=== PATIENT | male | born 1995 ===

== ENCOUNTER 2021-02-28 18:56 | Emergency (ER) | payer OTHER, SELFPAY ==
--- NOTE | ~2021-02-28 | XR_ITS ---
EXAMINATION: XR CHEST CLINICAL INFORMATION: Cough COMPARISON: 07/24/2016 TECHNIQUE: 2 views of the chest were obtained. FINDINGS: The lungs are well expanded. There is no focal consolidation, edema, or effusion. No pneumothorax. The cardiomediastinal silhouette is within normal limits. No acute osseous abnormality. XR/XR chest 2V IMPRESSION: Clear lungs.
[2021-02-28 19:01] VITALS: BP 143/79; PULSE 79; RESP 16; TEMP 37.1; O2SAT 99; BMI 24.3
[2021-02-28 19:43] LABS: COVID-19 Test Negative (Negative)
--- NOTE | 2021-02-28 21:23 | ED.URI ---
HPI - URI/Sore Throat General Chief Complaint: Upper Respiratory Symptoms Stated Complaint: Cold symptoms Time Seen by Provider: 02/28/21 21:23 Source: patient Mode of arrival: ambulatory Limitations: no limitations History of Present Illness HPI Narrative: States past 3 days of runny nose and congestion today with mild cough. No fever. No recent travel or sick contacts. Is vaccinated for COVID-19. MD elicited complaint: rhinorrhea and nasal congestion Onset (ago): day(s) Consistency: constant Severity: mild Exacerbating factors: nothing Relieving factors: nothing Associated symptoms: denies other symptoms Treatments prior to arrival: none Related Data Allergies Allergy/AdvReac Type Severity Reaction Status Date / Time azithromycin [From ZITHROMAX] Allergy Unknown RASH/SWELLI Unverified 05/27/20 16:38 NG Review of Systems Review of Systems: Constitutional: No Weight loss, No Fever, No Chills, No Night Sweats, No Fatigue, No Malaise ENT/Mouth: No Hearing loss, No Ear Pain, + Nasal Congestion, No Sinus Pain, No Hoarseness, No sore throat, + Rhinorrhea, No Swallowing Difficulty Eyes: No Eye Pain, No Swelling, No Redness, No Foreign Body, No Discharge, No Vision Changes Cardiovascular: No Chest Pain, No SOB, No Dyspnea on Exertion, No Orthopnea, No Edema, No Palpitations Respiratory: + Cough, No Sputum, No Wheezing, No Smoke Exposure, No Dyspnea Gastrointestinal: No Nausea, No Vomiting, No Diarrhea, No Constipation, No abdominal Pain, No Hematochezia, No Melena Genitourinary: no irregular bleeding, No Dysuria, No Urinary Frequency, No Hematuria, No Urinary Incontinence, No Urgency, No Flank Pain, No Urinary Flow Changes, No Hesitancy Musculoskeletal: No joint pain, No Myalgias, No Joint Swelling Skin: No Skin Lesions, No rash Neuro: No Weakness, No Numbness, No Paresthesias, No Loss of Consciousness, No Dizziness, No Headache Psych: No Social Issues Heme/Lymph: No Bruising, No Bleeding,No Lymphadenopathy Endocrine: No Polyuria, No Polydipsia, No Temperature Intolerance Yes all other systems are reviewed and are negative PMFSH Past Medical History Medical History (Updated 02/28/21 @ 21:25 by Daniel Jerez NP) Asthma Social History Social History Advance Directives: No Advance Directives Information Provided: Yes Physical Exam Vital Signs: Vital Signs: Last Vital Signs Temp 98.7 F 02/28/21 19:01 Pulse 79 02/28/21 19:01 Resp 16 02/28/21 19:01 BP 143/79 H 02/28/21 19:01 Pulse Ox 99 02/28/21 19:01 Body Mass Index 24.3 Reviewed Const: General: cooperative and healthy appearing; No acute distress or intoxicated appearing Nutritional Appearance: average body habitus Orientation/consciousness: patient oriented x3 HENMT: Head: Yes normal to inspection Ears: hearing grossly normal bilaterally Eyes: General: appearance normal, both eyes and all related structures Visual Smith: normal visual smith by confrontation Neck: Neck: Yes normal visual inspection, No positive Brudzinski's sign, No positive Kernig's sign and No tender Thyroid: Thyroid normal Chest: Chest palpation & inspection: normal inspection of the chest Resp: Effort & Inspection: normal respiratory effort Auscultation: clear to auscultation bilaterally Cardio: Jugular venous distension: no JVD Rhythm: regular rhythm Heart sounds: S1 normal heart sound present and S2 normal heart sound present GI: Inspection: Yes normal to inspection Palpation (GI): Soft to palpation Percussion: Yes normal to percussion Auscultation: normal bowel sounds : General: Yes no CVA tenderness Back/Spine/Pelvis: Back: no CVA tenderness Skin: General skin exam: no rashes or lesions noted Neuro: General: patient oriented x3 Extrem: General: Yes normal to inspection Course Course Course Narrative: Mild rhinorrhea otherwise exam unremarkable. COVID-19 negative protocol chest x-ray done prior to my evaluation in triage this was negative as well. Will practice social isolation/distancing. Work note provided. Verbalized understanding. Stable for discharge. MDM - URI/Sore Throat Lab Data Labs: Lab Results 02/28/21 Range/Units 19:22 COVID-19 (GEOVANNI) Negative (Negative) COVID-19 Clin Com See Note Imaging Data Chest x-ray: Radiologist's impression: Edi Chiu 25 M 1995 [facility], [place] [place], [place] [id number] ReportSigned Patient: AramEdi AMR#: [id number]: 1995Acct:[id number]/Sex: 25 / MADM Date: 02/28/21Loc: HO.EDAttending Dr: Ordering Physician: Generic ED Physician Date of Service: 02/28/21 Procedure(s): XR chest 2V Accession Number(s): [id number] cc: Generic ED Physician~ EXAMINATION: XR CHEST CLINICAL INFORMATION: Cough COMPARISON: 07/24/2016 TECHNIQUE: 2 views of the chest were obtained. FINDINGS: The lungs are well expanded. There is no focal consolidation, edema, or effusion. No pneumothorax. The cardiomediastinal silhouette is within normal limits. No acute osseous abnormality. XR/XR chest 2V IMPRESSION: Clear lungs. Dictated By:Santiago Pedraza MDSigned By:<Electronically signed by Santiago Pedraza MD in OV>02/28/212025 DD/ 02TD/TT: Warp Doffer: Discharge Plan Discharge Clinical Impression: Upper respiratory infection Qualifiers: URI type: unspecified viral URI Qualified Code(s): J06.9 - Acute upper respiratory infection, unspecified Patient Disposition: Home, Self-Care Instructions: Cold Symptoms (ED) Additional Instructions: Drink plenty of fluids Supportive care discussed Your COVID test was negative today Her chest x-ray did not show any evidence of infection Self-isolation social distancing at least until it you are 3 days symptom free Return if any concerns or worsening symptoms Otherwise follow-up as discussed Thank you Referrals: Physician,Unknown [Primary Care Provider] - 1 week (Phone visit) Stand Alone Forms: Work/School Release
--- NOTE | 2021-02-28 21:39 | PC.NURSE ---
VITALS UPON D/C. 98.7, 96%, 67P 123/65.
== END 2021-02-28 21:38 | disposition home or self-care (01) ==
PROVIDERS: Emergency Provider Emergency Medicine
DX: J06.9 Acute upper respiratory infection, unspecified (principal); Z20.822 Contact with and (suspected) exposure to COVID-19
CPT/HCPCS: 36415; 71046; 87635; 99283; 99284

== ENCOUNTER 2021-09-08 11:35 | Outpatient (REF) | payer OTHER, SELFPAY ==
[2021-09-08 13:26] LABS: IDNOW Serial# 16C4AD1C
[2021-09-08 13:27] LABS: COVID-19 Test Negative (Negative)
== END 2021-09-08 11:36 | disposition home or self-care (01) ==
LOC: HO.LAB 11:35
PROVIDERS: Visit Provider Internal Medicine
DX: Z20.822 Contact with and (suspected) exposure to COVID-19 (principal)
CPT/HCPCS: 36415; 87635; C9803

== ENCOUNTER 2022-08-08 05:53 | Emergency (ER) | payer MEDICAID, SELFPAY ==
--- NOTE | ~2022-08-08 | XR_ITS ---
EXAMINATION: XR CHEST CLINICAL INFORMATION: Cough. COMPARISON: None TECHNIQUE: Frontal view of the chest was obtained. FINDINGS: No significant abnormality is noted involving the heart, lungs, mediastinum, bony thorax or soft tissues. XR/XR chest 1V IMPRESSION: Unremarkable chest examination.
[2022-08-08 06:24] VITALS: BP 138/77; PULSE 100; RESP 20; TEMP 37.6; O2SAT 97; BMI 26.6
--- NOTE | 2022-08-08 07:32 | ED_ITS ---
HPI - URI/Sore Throat General Chief Complaint: Upper Respiratory Symptoms Stated Complaint: covid +, symptoms worsening Time Seen by Provider: 08/08/22 06:53 Source: patient Mode of arrival: ambulatory Limitations: no limitations History of Present Illness HPI Narrative: This is a 26 years old male presented to the emergency department complaining of cough congestion he was COVID positive 2 days ago denies any fever chills MD elicited complaint: cough Onset (ago): day(s) (3) Consistency: constant Severity: moderate Description of mucous: watery Able to tolerate fluids by mouth: Yes Exacerbating factors: nothing Related Data Allergies Allergy/AdvReac Type Severity Reaction Status Date / Time azithromycin [From ZITHROMAX] Allergy Unknown RASH/SWELLI Verified 08/08/22 06:2 6 NG Review of Systems Review of Systems: Yes all other systems are reviewed and are negative Constitutional: Constitutional: Reports no additional constitutional complaints ENT: Reports system reviewed and no additional complaints, except as documented Neurologic: Reports system reviewed and no additional complaints, except as documented PMFSH Past Medical History Medical History Asthma Social History Social History Advance Directives: No Advance Directives Information Provided: No Physical Exam Vital Signs: Vital Signs: Last Vital Signs Temp 100.1 F 08/08/22 07:40 Pulse 92 08/08/22 07:40 Resp 18 08/08/22 07:40 BP 125/64 08/08/22 07:40 Pulse Ox 98 08/08/22 07:40 O2 Del Method 08/08/22 07:40 BMI result Body Mass Index 26.6 Const: General: cooperative Nutritional Appearance: well nourished Limitations: no limitations HEENT: Head: Yes normal to inspection Ears: TM's normal bilaterally General nose exam: Normal external nose present Face and sinus: Yes normal facial exam Mouth: Normal oral and palatal mucosa present Teeth and gingiva: dentition normal Throat: Yes posterior oropharynx normal Neck: Neck: Yes normal visual inspection and Yes full ROM Chest: Chest palpation & inspection: normal inspection of the chest Resp: Effort & Inspection: normal respiratory effort Cardio: Jugular venous distension: no JVD Rate: regular rate Rhythm: regular rhythm Heart sounds: S1 normal heart sound present and S2 normal heart sound present GI: Inspection: Yes normal to inspection Palpation (GI): Soft to palpation, not firm, nontender and no guarding Percussion: Yes normal to percussion Auscultation: normal bowel sounds : General: Yes no CVA tenderness Back/Spine/Pelvis: Back: no CVA tenderness Thoracic/Lumbar Spine: thoracic and lumbar spine normal to inspection Course Course Course Narrative: feels better CXR negative will d/c home Medications Administered Discontinued Medications Generic Name Dose Route Start Last Admin Trade Name Freq PRN Reason Stop Dose Admin Ketorolac Tromethamine 60 mg 08/08/22 07:17 08/08/22 07:41 Ketorolac Tromethamine 60 Mg/2 Ml Vial IM 08/08/22 07:18 60 mg ONCE ONE Administration MDM - URI/Sore Throat Imaging Data Chest x-ray: Radiologist's impression: EXAMINATION: XR CHEST CLINICAL INFORMATION: Cough. COMPARISON: None TECHNIQUE: Frontal view of the chest was obtained. FINDINGS: No significant abnormality is noted involving the heart, lungs, mediastinum, bony thorax or soft tissues. XR/XR chest 1V IMPRESSION: Unremarkable chest examination. ? Discharge Plan Discharge Clinical Impression: COVID-19 Patient Disposition: Home, Self-Care Instructions: COVID-19 (Coronavirus Disease 2019) (ED) Additional Instructions: Drink a lot of fluid you could take ibuprofen 800 mg 3 times a day as needed return if you worse Interventions: ED Discharge Assessment Last Done: 08/08/22 09:11 Discharge Date/Time: 08/08/22 09:00
[2022-08-08 07:40] VITALS: BP 125/64; PULSE 92; RESP 18; TEMP 37.8; O2SAT 97; O2SAT 98
[2022-08-08] MEDS: Ketorolac Tromethamine 60 MG/2 ML VIAL IM (07:41)
--- NOTE | 2022-08-08 09:10 | PC.NURSE ---
WENT TO DISCHARGE PATIENT AND PATIENT WAS NOT IN ROOM. HOSPITAL GOWN ON THE BED.
== END 2022-08-08 09:00 | disposition home or self-care (01) ==
PROVIDERS: Emergency Provider Emergency Medicine
DX: U07.1 COVID-19 (principal); R05.9 Cough, unspecified
CPT/HCPCS: 71045; 96372; 99284; J1885

== ENCOUNTER 2024-07-09 11:13 | Outpatient (AMB) | payer OTHER, SELFPAY ==
--- NOTE | 2024-07-09 11:22 | MHC.PC.OV ---
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 [employer] Required: No Allergies azithromycin [From ZITHROMAX] Allergy (Unknown, Verified 07/09/24 11:44) RASH/SWELLING Medication List - Last Reconciled 07/09/24 by Maximiliano Ray CNP No Known Home Meds Tobacco use date assessed: 07/09/24 Dental Screening Dental Screen Date: 07/09/24 Did you have a dental visit in the last 12 months?: Yes Did you have a dental problem in the last 6 months where you did not have access to dental care?: No Was dental information given to patient?: Patient has dentist HPI HPI Comments History of Present Illness Details New patient Prior PCP:?[facility] Last office visit/CPE: About 8 years Acute issue(s): Myopia -Wears prescription glasses Not on prescription medications He makes healthy lifestyle changes. He generally sleeps well He offers no complaints and denies acute symptoms at this time PMHx: Childhood asthma SurgHx: None FHx: Brother: Asthma SocHx: Nonsmoker. Drinks 1-2 glasses alcoholic beverage monthly. Smokes 2-3 blunts of cannabis nightly, and has been smoking for about 10 years Last eye exam was about 2 years ago Last tetanus vaccine more than 10 years ago; he requests the vaccine He has not been vaccinated for the flu this season; he requests the vaccine He does not want the covid vaccine He notes that he is sexually active and currently in a monogamous relationship. He had sexual intercourse with multiple partners earlier this year and used a barrier of protection. He has not concerns for STD but wants to be tested COUNT INCLUDES [facility] Medical History Asthma Family History (Updated 07/09/24 @ 11:34 by Felicia Chiu MA) Brother Asthma Social History (Updated 07/09/24 @ 11:28 by Felicia Chiu MA) Housing: House Patient Tobacco Use Status: Never used Tobacco e-Cigarette/Vaping Use: Never Used Second Hand Smoke Exposure: No Substance Use Type: Marijuana service: No Current occupational status: unemployed Current occupational exposures/hazards: No Cognitive needs: No Vision needs: Yes Questionnaire PHQ-9 Over the last 2 weeks, how often have you been bothered by any of the following problems? 1. Little interest or pleasure in doing things: not at all 2. Feeling down, depressed, or hopeless: not at all 3. Trouble falling or staying asleep, or sleeping too much: several days 4. Feeling tired or having little energy: not at all 5. Poor appetite or overeating: not at all 6. Feeling bad about yourself - or that you are a failure or have let yourself or your family down: not at all 7. Trouble concentrating on things, such as reading the newspaper or watching television: not at all 8. Moving or speaking so slowly that other people could have noticed. Or the opposite - being so fidgety or restless that you have been moving around a lot more than usual: not at all 9. Thoughts that you would be better off or of hurting yourself in some way: not at all Total score: 1 Depression Screening Interpretation: Negative Depression Screening Done: Yes 43112 - PHQ-9 Billing: Yes Source: Developed by Drs. Winston Newsome, Kimi Romero, Neville Cherry and colleagues, with an educational susan from [facility]. Thrive Questionnaire Date Thrive assessed: 07/09/24 I am a: Patient What is your living situation today?: I have a steady place to live Within the past 12 months, did the food you bought not last and you didn't have the money to get more?: I choose not to answer this question Within the past 12 months, did you worry whether your food would run out before you got money to buy more?: I choose not to answer this question Do you have trouble paying for medicines?: No Do you have trouble getting transportation to medical appointments?: No Do you have trouble paying your heating and electricity bill?: No Do you have trouble taking care of your child, family member or friend?: No Do you have trouble with day-to-day activities such as bathing, preparing meals, shopping, managing finances, etc.?: No Are you currently unemployed and looking for a job?: Yes Are you interested in more education?: Yes Please select the resources that you would like help with: None Currently or been in a relationship where the following occur: No concerns reported THRIVE Score: 0 AUDIT C Alcohol Use Questionnaire (AUDIT-C) 1. How often do you have a drink containing alcohol?: Monthly or less 2. How many drinks containing alcohol do you have on a typical day when you are drinking?: 3 or 4 3. How often do you have six or more drinks on one occasion?: Never Total Score: 2 Score Reviewed/Action Taken: Yes FRANCES-7 AMB Questionnaire FRANCES-7 Date FRANCES - 7 assessed: 07/09/24 Feeling nervous, anxious, or on edge: 0 = Not at all Not being able to stop or control worryin = Not at all Worrying too much about different things: 0 = Not at all Trouble relaxin = Not at all Being so restless that it is hard to sit still: 0 = Not at all Becoming easily annoyed or irritable: 0 = Not at all Feeling afraid as if something awful might happen: 0 = Not at all Total FRANCES-7 score (0-4 normal; 5-9 mild; 10-14 moderate; 15-21 severe): 0 Source: Developed by Drs. Winston Newsome, Kimi Romero, Neville Cherry and colleagues, with an educational susan from [employer] [facility]. FRANCES-7 Assessment Billing FRANCES-7 Assessment Tool: FRANCES-7 Assessment 76773 ACT Questionnaire In the past 4 weeks, how much of the time did your asthma keep you from getting as much done at work, school or at home?: None of the time During the past 4 weeks, how often have you had shortness of breath?: Not at all During the past 4 weeks, how often did your asthma symptoms wake you up at night or earlier than usual in the morning?: Not at all During the past 4 weeks, how often have you had to use your rescue inhaler or nebulizer medication?: Not at all How would you rate your asthma control during the past 4 weeks?: Completely controlled ACT Interpretation: Negative Score: 25 Review of Systems Const Details: Denies chills, Denies fatigue, Denies fever(s), Denies headache(s) and Denies weakness HEENT Denies change in vision, Denies dizziness, Denies headache(s), Denies hearing loss, Denies nasal congestion, Denies sinus pain, Denies sinus pressure and Denies sore throat Card Denies chest pain, Denies lightheadedness, Denies dyspnea and Denies other (palpitations) Resp Denies cough, Denies dyspnea and Denies wheezing GI Denies abdominal pain, Denies melena, Denies hematochezia, Denies change in bowel habits, Denies dyspepsia and Denies nausea Denies hematuria and Denies dysuria Musc Denies abnormal gait, Denies myalgias, Denies arthralgias, Denies numbness and Denies tingling Skin/Breast Denies rash, Denies unusual bruising and Denies wounds Neuro Denies abnormal gait, Denies dizziness, Denies headache(s), Denies memory loss, Denies numbness, Denies Sensory deficit (Neuro), Denies tingling and Denies weakness Psych Denies anxiety, Denies depression and Denies memory loss Endo Denies cold intolerance, Denies fatigue, Denies heat intolerance, Denies polydipsia and Denies polyuria Tavo/Lymph Denies easy bleeding and Denies easy bruising Aller/Immun Denies wheezing Physical exam (Primary Care) Vital Signs: Last Vital Signs Temp 98.2 F 07/09/24 11:28 Pulse 84 07/09/24 11:28 Resp 16 07/09/24 11:28 BP 128/82 07/09/24 11:28 Pulse Ox 98 07/09/24 11:28 Oxygen Delivery Method Room Air 07/09/24 11:28 BMI result Body Mass Index 28.1 Tobacco/Smoking Status: Tobacco use Status Tobacco use date assessed 07/09/24 07/09/24 11:32 Patient Tobacco Use Status Never used Tobacco 07/09/24 11:32 e-Cigarette/Vaping Use Never Used 07/09/24 11:32 PHQ-9: PHQ-9 Score PHQ-9: Total score 1 07/09/24 12:24 Depression Screening Interpretation: Negative Thrive Assessment: Date of Thrive Assessment Date Thrive assessed 07/09/24 07/09/24 11:24 Currently or been in a relationship where the following occur: No concerns reported Const Other: General: no acute distress, well developed, alert and awake Nutritional Appearance: well nourished Orientation/consciousness: patient oriented x3 HENWY Head: Yes normocephalic and Yes atraumatic Ears: hearing grossly normal bilaterally and TM's normal bilaterally General nose exam: Normal external nose present and Normal nares present Mouth: Normal oral and palatal mucosa present and moist mucous membranes Teeth and gingiva: dentition normal Throat: Yes oropharynx normal Eyes Pupils: Equal, round and reactive pupils present and Pupil accommodation reflex normal EOM: EOMs intact bilaterally Neck Neck: Yes normal visual inspection, Yes no lymphadenopathy and Yes trachea midline Thyroid: Thyroid normal Carotids: no bruits Lymphatic: no lymphadenopathy noted Chest Chest palpation & inspection: normal inspection of the chest Resp Effort & Inspection: normal respiratory effort Auscultation: clear to auscultation bilaterally Cardio Rate: regular rate Rhythm: regular rhythm Heart sounds: S1 normal heart sound present, S2 normal heart sound present, no gallops, no murmurs and no rubs Bruits: no abdominal aortic bruits and no carotid bruits GI Palpation (GI): No Abdominal aortic bruit present, Soft to palpation, nontender, No hepatosplenomegaly present and No Rebound tenderness present Auscultation: normal bowel sounds General: Yes no CVA tenderness Back/Spine/Pelvis Back: no CVA tenderness Cervical Spine: cervical ROM normal and No Cervical spine tenderness Thoracic/Lumbar Spine: thoraco-lumbar ROM normal, No pain with thoraco-lumbar ROM, No thoracic spinal tenderness and No lumbar spinal tenderness Skin General: warm and dry. Normal skin color. Normal skin turgor Lesions: no lesions Rashes: no rashes Trauma: no lacerations or abrasions Wounds: no wounds Nails: normal Neuro General: patient oriented x3, gait normal and CN's II-XI intact bilaterally Cranial nerves: Yes Equal, round and reactive pupils present Cognition (Neuro): normal cognition Gait exam (Neuro): Normal gait present Motor exam (neuro): 5/5 motor strength present throughout Sensory Exam: No Sensory deficit (Neuro) Deep tendon reflexes (DTR's): Right patellar reflex intensity grade: 2+ and Left patellar reflex intensity grade: 2+ Extrem General: Yes normal to inspection, No edema and No calf tenderness Psych Appearance: grossly normal Affect: normal affect Attitude: cooperative Thought process: Normal thought process present Office Procedures Flu Questionnaire Does the patient have a severe egg allergy?: No Does the patient have severe life threatening allergies?: No Does the patient have a fever or illness today?: No Has the patient ever had Guillain-[place] Syndrome?: No Has the patient ever had any past reaction to a flu shot?: No Immunizations Fluarix Triv 4964-5830 (PF) 45 mcg (15 mcg x 3)/0.5 mL IM syringe Performing Provider: Maximiliano Ray CNP Performing Location: [facility] [place] [facility] Administered by: Mercedes Fox RN on 07/09/24 12:20 Dose Route Admin Location Dispensed Lot Number Expiration Date NDC [place] 0.5 mL IM Right Deltoid 0.5 mL [id number] 03/09/25 92468-215-15 [employer]LA[employer] VIS Given Date VIS Provided VIS Publication Date 07/09/24 Single Vaccine 21 Eligibility Eligibility Date Funding Source Not VF Eligible 07/09/24 Private Administration Comments: Patient received two vaccines today, flu and TDaP, both in the right deltoid. Flu shot above the TDaP. Boostrix Tdap 2.5 Lf unit-8 mcg-5 Lf/0.5 mL intramuscular syringe Performing Provider: Maximiliano Ray CNP Performing Location: [facility] Administered by: Mercedes Fox RN on 07/09/24 12:20 Dose Route Admin Location Dispensed Lot Number Expiration Date NDC [place] 0.5 mL IM Right Deltoid 0.5 mL [id number] 06/07/25 93570-372-97 [employer]LAXOSMITHK[employer] VIS Given Date VIS Provided VIS Publication Date 07/09/24 Single Vaccine 21 Eligibility Eligibility Date Funding Source Not VFC Eligible 07/09/24 Private Administration Comments: Patient received two vaccines today, flu and TDaP, both in the right deltoid. Flu shot above the TDaP. Coding Level of Care Code New Pt Level 3 (20419) New Pt Prev Care 18-39yr(39654 Diagnoses Normal physical examination, routine Z00.00 Eye exam, routine Z01.00 Myopia H52.10 Vaccine for tetanus toxoid Z23 Flu vaccine need Z23 Screen for STD (sexually transmitted disease) Z11.3 Laboratory tests ordered as part of a complete physical exam (CPE) Z00.00 Additional Codes Asthma Control Questionnaire - ACT Interpretation: Negative ([id number]) FRANCES-7 Assessment Billing - FRANCES-7 Assessment Tool: FRANCES-7 Assessment [id number] ([id number]) Assessment & Plan Assessment & Plan (1) Normal physical examination, routine: Code(s): Z00.00 - Encounter for general adult medical examination without abnormal findings Category: Medical Plan: No significant functional limitation noted Healthy diet and routine exercise encouraged Advised to limit or avoid smoking cannabis Encouraged to get lab work done and follow-up for a telehealth visit for labs review in 2-3 weeks Return sooner with symptoms or concerns Verbalized understanding and agreed with the treatment plan (2) Eye exam, routine: Code(s): Z01.00 - Encounter for examination of eyes and vision without abnormal findings Category: Medical Plan: His last eye exam was 2 years ago. Referred to Ophthalmology for routine eye exam (3) Myopia: Code(s): H52.10 - Myopia, unspecified eye Category: Medical Plan: He wears prescription glasses. Plan as above (4) Vaccine for tetanus toxoid: Code(s): Z23 - Encounter for immunization Category: Medical Plan: His last tetanus vaccine was over 10 years ago. Tetanus vaccine administered today by our nurse (5) Flu vaccine need: Code(s): Z23 - Encounter for immunization Category: Medical Plan: He has not been vaccinated for the flu this season. Flu vaccine administered today by our nurse (6) Screen for STD (sexually transmitted disease): Code(s): Z11.3 - Encounter for screening for infections with a predominantly sexual mode of transmission Category: Medical Plan: He is sexually active and currently in a monogamous relationship. He had sexual intercourse with multiple partners earlier this year and used a barrier of protection. He has not concerns for STD but wants to be tested Labs ordered for STD screening (7) Laboratory tests ordered as part of a complete physical exam (CPE): Code(s): Z00.00 - Encounter for general adult medical examination without abnormal findings Category: Medical Plan: Fasting labs ordered as part of a complete physical exam. Advised to fast for at least 10 hours before getting labs drawn. May drink water Verbalized understanding and agreed with treatment plan. Orders: Orders Influenza [id number] Immunization Today Z23 - Encounter for immunization TDaP Immunization Today Z23 - Encounter for immunization HIV Ab/Ag Today Z11.3 - Encounter for screening for infections with a predominantly sexual mode of transmission CT NG by PCR Today Z11.3 - Encounter for screening for infections with a predominantly sexual mode of transmission Syphilis Screen Today Z11.3 - Encounter for screening for infections with a predominantly sexual mode of transmission Hepatitis B,C Profile Today Z11.3 - Encounter for screening for infections with a predominantly sexual mode of transmission Comprehensive Sherman. Panel Fast Today Z00.00 - Encounter for general adult medical examination without abnormal findings TSH reflex Free T4 Today Z00.00 - Encounter for general adult medical examination without abnormal findings Complete Blood Count Auto Diff Today Z00.00 - Encounter for general adult medical examination without abnormal findings Lipid Panel Today Z00.00 - Encounter for general adult medical examination without abnormal findings UA CC w/rflx Micro + Cult Today Z00.00 - Encounter for general adult medical examination without abnormal findings Referrals Ophthalmology Referral H52.10 - Myopia, unspecified eye, Z01.00 - Encounter for examination of eyes and vision without abnormal findings
[2024-07-09 11:28] VITALS: BP 128/82; PULSE 84; RESP 16; TEMP 36.8; O2SAT 98; BMI 28.1
== END 2024-07-09 12:27 | disposition home or self-care (01) ==
PROVIDERS: Visit Provider Nurse Practitioner Family
DX: Z00.00 Encounter for general adult medical examination without abnormal findings (principal); Z11.3 Encounter for screening for infections with a predominantly sexual mode of transmission; Z23 Encounter for immunization

== ENCOUNTER → 2024-07-09 11:13 | Outpatient (BNVA) | payer OTHER, MEDICAID, SELFPAY | PROVIDERS: Visit Provider Nurse Practitioner Family ==

== ENCOUNTER 2024-07-09 12:22 | Outpatient (REF) | payer OTHER, SELFPAY ==
[2024-07-09 14:33] LABS: Appearance Urine Clear; Color Urine Yellow; Glucose Urine UA Negative (Negative); Leukocyte Esterase Urine Negative (Negative); Nitrite Urine Negative (Negative); PH 6.5 (5.0-9.0); Urine Blood Negative (Negative); Urine Ketones Negative (Negative); Urine Protein Negative (Neg-Trace)
[2024-07-09 14:40] LABS: MANUAL DIFF FLAG NO
[2024-07-09 14:50] LABS: Basophils Percent Auto 0.5 % (0-2); Eosinophils Absolute Auto 0.2 X10*3/uL (0.0-0.4); Eosinophils Percent Auto 2.2 % (0-4); Hematocrit 49.7 % (42.0-52.0); Hemoglobin 17.2 g/dl (14.0-18.0); Imm Gran Abs Auto 0.03 X10*3/uL (0.00-0.03); Imm Gran Pct Auto 0.4 % (0.0-0.4); Lymphocytes Absolute Auto 2.5 X10*3/uL (1.2-4.9); Lymphocytes Percent Auto 33.8 % (20-40); Mean Corpuscular HGB Conc 34.6 g/dl (31.0-36.0); Mean Corpuscular Hemoglobin 29.4 pg (27.0-33.0); Mean Corpuscular Volume 84.8 fL (80.0-98.0); Mean Platelet Volume 10.9 fL (9.4-12.4); Monocytes Absolute Auto 0.7 X10*3/uL (0.1-1.2); Monocytes Percent Auto 9.5 % (2-11); Neutrophils Absolute Auto 3.9 x10*3/uL (2.0-8.3); Neutrophils Percent Auto 53.6 % (45-73); Platelet Count 215 X10*3/uL (160-400); Red Blood Count 5.86 X10*6/uL (4.60-5.80); White Blood Count 7.4 X10*3/uL (4.8-10.8)
[2024-07-09 15:21] LABS: Alanine Aminotransferase 60 U/L (0-40); Albumin Level 4.6 g/dL (3.5-5.0); Alkaline Phosphatase 108 U/L (39-117); Anion Gap 10 (12-20); Aspartate Amino Transferase 40 U/L (5-37); Bilirubin Total 0.5 mg/dL (0.0-1.0); Blood Urea Nitrogen 10 mg/dL (9-16); Carbon Dioxide 29 mmol/L (22-29); Chloride 105 mmol/L (96-108); Cholesterol 190 mg/dL (<200); Estimated Glomerular Filt Rate > 60; Glucose Fasting 107 mg/dL (60-99); HDL Cholesterol 42 mg/dL (>40); LDL Cholesterol Calculated 126 mg/dL (<100); Potassium 4.3 mmol/L (3.3-5.1); Sodium 140 mmol/L (135-145); Triglycerides 110 mg/dL (<150)
[2024-07-09 15:28] LABS: TSH reflex Free T4 1.64 uIU/mL (0.32-4.0)
[2024-07-10 08:21] LABS: HBc Num1 0.16 S/CO (0.00-0.79); HBsAGNum1 0.36 S/CO (0.00-0.99); HIV AB/AG Nonreactive (Nonreactive); HIV Num 1 0.07 S/CO (0.00-0.99); Hepatitis B Core Antibody Nonreactive (Nonreactive); Hepatitis B Surface Antigen Negative (Negative); ~HepC Num1 0.23 S/CO (0.00-0.79); ~Hepatitis B Surface Antibody NONREACTIVE (Nonreactive); ~Hepatitis C Antibody Nonreactive (Nonreactive)
[2024-07-10 08:44] LABS: Syphilis Screen Nonreactive (Nonreactive)
== END 2024-07-09 12:23 | disposition home or self-care (01) ==
LOC: HO.WFDLDS 12:22
PROVIDERS: Visit Provider Nurse Practitioner Family
DX: Z00.00 Encounter for general adult medical examination without abnormal findings (principal); Z01.00 Encounter for examination of eyes and vision without abnormal findings; Z11.3 Encounter for screening for infections with a predominantly sexual mode of transmission; H52.10 Myopia, unspecified eye; Z23 Encounter for immunization
CPT/HCPCS: 36415; 80053; 80061; 81003; 84443; 85025; 86704; 86706; 86780; 86803; 87340; 87389; 90471; 90472; 90656; 90715; 96127; 96160; 99385

== ENCOUNTER 2024-07-24 16:28 | Outpatient (AMB) | payer OTHER, SELFPAY ==
--- NOTE | 2024-07-24 08:02 | MHC.PC.OV ---
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 Allergies azithromycin [From ZITHROMAX] Allergy (Unknown, Verified 07/24/24 16:25) RASH/SWELLING Tobacco use date assessed: 07/09/24 Dental Screening Dental Screen Date: 07/09/24 HPI HPI Comments History of Present Illness Details 28-year-old female presents for telehealth visit for review of recent lab results He offers no complaints and denies acute symptoms at this time COUNT INCLUDES THE [facility] Medical History Asthma Family History (Updated 07/09/24 @ 11:34 by Felicia Chiu MA) Brother Asthma Social History (Updated 07/09/24 @ 11:28 by Felicia Chiu MA) Housing: House Patient Tobacco Use Status: Never used Tobacco e-Cigarette/Vaping Use: Never Used Second Hand Smoke Exposure: No Substance Use Type: Marijuana service: No Current occupational status: unemployed Current occupational exposures/hazards: No Cognitive needs: No Vision needs: Yes Questionnaire Thrive Questionnaire Date Thrive assessed: 07/09/24 FRANCES-7 AMB Questionnaire FRANCES-7 Date FRANCES - 7 assessed: 07/09/24 Source: Developed by Drs. Winston Newsome, Kimi Romero, Neville Cherry and colleagues, with an educational susan from [employer]. Review of Systems Const Details: Const Denies chills, Denies fatigue, Denies fever(s), Denies headache(s) and Denies weakness ENT Denies dizziness and Denies headache(s) Card Denies chest pain, Denies lightheadedness, Denies dyspnea and Denies other (Palpitations) Resp Denies cough, Denies dyspnea, Denies wheezing and Denies other ( shortness of breath) GI Denies abdominal pain, Denies melena, Denies hematochezia, Denies change in bowel habits, Denies dyspepsia and Denies nausea Denies hematuria and Denies dysuria Musc Denies abnormal gait, Denies myalgias, Denies arthralgias, Denies numbness and Denies tingling Skin/Breast Denies rash, Denies unusual bruising and Denies wounds Neuro Denies abnormal gait, Denies dizziness, Denies headache(s), Denies memory loss, Denies numbness, Denies Sensory deficit (Neuro), Denies tingling and Denies weakness Psych Denies anxiety, Denies depression, Denies memory loss Endo Denies cold intolerance, Denies fatigue, Denies heat intolerance, Denies polydipsia and Denies polyuria Aller/Immun Denies wheezing Physical exam (Primary Care) Tobacco/Smoking Status: Tobacco use Status Tobacco use date assessed 07/09/24 07/24/24 08:03 Patient Tobacco Use Status Never used Tobacco 07/24/24 08:03 e-Cigarette/Vaping Use Never Used 07/24/24 08:03 Thrive Assessment: Date of Thrive Assessment Date Thrive assessed 07/09/24 07/24/24 08:03 Const Other: Telehealth visit. No physical exam Telehealth Telehealth Telehealth Platform: Telephone Location of provider rendering services: practice address Location of patient: address on file Patient Identification confirmed using: Name, : Yes Telehealth method: voice only Patient verbally consented to treatment: Yes Patient verbally consented to billing insurance company: Yes Patient informed of any privacy concerns related to visit: Yes Coding Level of Care Code Tele Est Pt Level 3 (59568) Diagnoses Elevated fasting glucose R73.01 Transaminitis R74.01 Time Spent (min) 10 Assessment & Plan Assessment & Plan (1) Elevated fasting glucose: Code(s): R73.01 - Impaired fasting glucose Category: Medical Plan: Recent lab results reviewed with the patient Fasting glucose is slightly elevated, 107 Will repeat fasting glucose and make changes as needed Healthy diet and routine exercise encouraged Follow-up for telehealth visit in 2-3 weeks or sooner with symptoms or concerns Verbalized understanding and agreed with the treatment plan (2) Transaminitis: Code(s): R74.01 - Elevation of levels of liver transaminase levels Category: Medical Plan: Recent AST and ALT levels were elevated, 40 and 60 respectively Result is equivocal. However, NAFLD is possible Will recheck liver panel make changes as needed Healthy diet and routine exercise encouraged Advised to get fasting lab work done a few days before his next visit Follow-up in 2-3 weeks for telehealth visit Verbalized understanding and agreed with the treatment plan Orders: Orders Glucose Fasting Today R73.01 - Impaired fasting glucose Liver Panel Today R74.01 - Elevation of levels of liver transaminase levels
== END 2024-07-24 16:33 | disposition home or self-care (01) ==
LOC: HO.HMCFM 16:28
PROVIDERS: PCP Nurse Practitioner Family; Visit Provider Nurse Practitioner Family
DX: R73.01 Impaired fasting glucose (principal); R74.01 Elevation of levels of liver transaminase levels

== ENCOUNTER 2024-08-04 13:45 | Outpatient (REF) | payer OTHER, SELFPAY ==
[2024-08-04 18:49] LABS: Alanine Aminotransferase 75 U/L (0-40); Albumin Level 4.4 g/dL (3.5-5.0); Alkaline Phosphatase 100 U/L (39-117); Aspartate Amino Transferase 55 U/L (5-37); Bilirubin Direct 0.2 mg/dL (0.0-0.5); Bilirubin Total 0.5 mg/dL (0.0-1.0); Glucose Fasting 94 mg/dL (60-99); Total Protein 7.4 g/dL (6.5-8.0)
[2024-08-05 12:32] LABS: CT PCR NOT DETECTED (Not Detect.); NG PCR NOT DETECTED (Not Detect.)
== END 2024-08-04 13:46 | disposition home or self-care (01) ==
LOC: HO.WFDLDS 13:45
PROVIDERS: Visit Provider Nurse Practitioner Family
DX: Z11.3 Encounter for screening for infections with a predominantly sexual mode of transmission (principal); R73.01 Impaired fasting glucose; R74.01 Elevation of levels of liver transaminase levels
CPT/HCPCS: 36415; 80076; 82947; 87491; 87591